=== PATIENT | male | born 1985 | race Caucasian/White ===

== ENCOUNTER 2017-11-14 17:51 | Emergency (ER) | payer OTHER ==
[2017-11-14] MEDS: LIDOCAINE 1% (MDV) 10 ML INJ INFIL (18:19)
== END 2017-11-14 19:36 | disposition home or self-care (01) ==
LOC: FTE 17:51
DX: S01.511A Laceration without foreign body of lip, initial encounter (principal); Y04.0XXA Assault by unarmed brawl or fight, initial encounter; Y92.9 Unspecified place or not applicable; Z87.891 Personal history of nicotine dependence
CPT/HCPCS: 12013; 99283-25

== ENCOUNTER 2017-11-18 11:47 | Emergency (ER) | payer OTHER | END 2017-11-18 12:18 | disposition home or self-care (01) | LOC: E/R 11:47 | DX: Z48.02 Encounter for removal of sutures (principal); F17.210 Nicotine dependence, cigarettes, uncomplicated | CPT/HCPCS: 99283; Z7502 ==